=== PATIENT | male | born 1995 | race Hispanic/Latino ===

== ENCOUNTER 2017-01-22 16:58 | Emergency (ER) | payer SELFPAY ==
[2017-01-22 17:23] VITALS: BP 133/84
--- NOTE | 2017-01-22 17:52 | Emergency Department Report ---
ED General Adult HPI - General Chief complaint: Medical Clearance Stated complaint: NEED CULTURE Time Seen by Provider: 01/22/17 17:33 Source: patient Mode of arrival: Ambulatory Limitations: No Limitations - History of Present Illness Initial comments: PT states he needs a cultures to see if he still has MRSA. PT was treated for abscess on L arm 2 weeks ago by PCP. PT states he has a hx of MRSA and he is on Doxy. PT states he went to the [facility] yesterday for drug treatment and today they are requiring documentation that proves he does not have MRSA. MD Complaint: culture Location: left, upper extremity Consistency: constant Improves with: medication (doxy ) Associated Symptoms: denies: fever/chills, nausea/vomiting Treatments Prior to Arrival: other (doxy ) - Related Data Previous Rx's Medication Instructions Recorded Last Taken Type Mupirocin [Bactroban 2% CREAM] 1 applicatio TP TID 5 Days 01/22/17 Unknown Rx Allergies Allergy/AdvReac Type Severity Reaction Status Date / Time No Known Allergies Allergy Unverified 01/22/17 17:23 ED Review of Systems ROS: Stated complaint: NEED CULTURE Other details as noted in HPI Comment: All other systems reviewed and negative Skin: other (open wound to L fa with small amount of yellow drainage ). denies : change in color Psychiatric: other (drug abuse ). denies: depression, suicidal thoughts ED Past Medical Hx - Past Medical History Hx Liver Disease: Yes (HEPATITIS C) Additional medical history: MRSA. DRUG ABUSE - Surgical History Additional Surgical History: RIGHT ARM (STAPH) - Social History Smoking Status: Never Smoker Substance Use Type: None - Medications Home Medications: Home Medications Medication Instructions Recorded Confirmed Last Taken Type Mupirocin [Bactroban 2% CREAM] 1 applicatio TP TID 5 Days 01/22/17 Unknown Rx ED Physical Exam - General Limitations: No Limitations General appearance: alert, in no apparent distress - Head Head exam: Present: atraumatic, normocephalic - Eye Eye exam: Present: EOMI Pupils: Present: other (dialated ) - ENT ENT exam: Present: normal exam, normal external ear exam - Neck Neck exam: Present: normal inspection, full ROM - Respiratory Respiratory exam: Absent: respiratory distress, accessory muscle use - Cardiovascular Cardiovascular Exam: Present: regular rate, normal rhythm - Extremities Exam Extremities exam: Absent: normal inspection - Expanded Upper Extremity Exam Right Elbow exam: Absent: normal inspection (surgical scars to R elbow ) Left Forearm Wrist exam: Present: other (1 cm teardrop shaped wound with small amount of purulent drainage ) Vascular: Present: radial pulse. Absent: vascular compromise - Back Exam Back exam: Present: normal inspection, full ROM - Neurological Exam Neurological exam: Present: alert, oriented X3, normal gait - Psychiatric Psychiatric exam: Present: normal affect, normal mood - Skin Skin exam: Present: warm, dry ED Course Vital Signs 01/22/17 17:18 Temperature 98.4 F Pulse Rate 61 Respiratory 16 Rate Blood Pressure 133/84 O2 Sat by Pulse 99 Oximetry - Reevaluation(s) Reevaluation #1: 01/22/17 18:07 wound culture sent to lab. PT aware that culture results will take three days. PT aware of plan of care. Reevaluation #2: 01/22/17 18:19 PT now states that he does not want cultures done here as he does not think his insurance will pay for labs. PT instructed to follow up with his infectious disease doctor for medical clearance for placement in drug treatment facility - Consultations Consultation #1: 01/22/17 18:06 [facility]. The nurse states that the pt is infectious and states that he is DC'd. MD at the [facility] wanting pt to have three negative cultures prior to re-admission - Pulse Oximetry Interpretation Digit-Finger Initial Pulse Oximetry Readin Actions Taken: none ED Medical Decision Making - Differential Diagnosis mrsa, wound, Critical Care Time: No Critical care attestation.: If time is entered above; I have spent that time in minutes in the direct care of this critically ill patient, excluding procedure time. ED Disposition Clinical Impression: Hx MRSA infection Wound of left upper extremity Qualifiers: Encounter type: initial encounter Qualified Code(s): S41.102A - Unspecified open wound of left upper arm, initial encounter Disposition: DISCHARGED TO HOME OR SELFCARE Is pt being admited?: No Does the pt Need Aspirin: No Condition: Stable Instructions: Methicillin Resistant Staphylococcus Aureus (ED) Additional Instructions: continue taking your antibiotics. Apply Bactroban ointment to wound and nares as instructed. Wash with otc hibiclens Follow up with infectious disease for clearance for the [facility] Prescriptions: Mupirocin [Bactroban 2% CREAM] 1 applicatio TP TID 5 Days Referrals: ALLISON CAMPA MD [Staff Physician] - 3-5 Days YOSVANY EMANUEL MD [Staff Physician] - 3-5 Days JONATHAN FOX PA [Physician Security Flex Officer] - 3-5 Days Time of Disposition: 17:56
== END 2017-01-22 18:20 | disposition home or self-care (01) ==
LOC: ED 16:58
DX: S41.102A Unspecified open wound of left upper arm, initial encounter (principal); X58.XXXA Exposure to other specified factors, initial encounter; Y93.9 Activity, unspecified; Y92.9 Unspecified place or not applicable; Y99.9 Unspecified external cause status
CPT/HCPCS: 87116; 99282